=== PATIENT | male | born 1960 | race Caucasian/White ===

== ENCOUNTER 2018-05-28 22:04 | Inpatient (IN) | payer OTHER ==
[~2018-05-28] VITALS: Ht 172.7 cm; Wt 69.6 kg
--- NOTE | 2018-05-28 22:15 | NUR ---
PT EPIA, REPORT TAKEN FROM EMS. PT C/O COUGH X 2 MONTHS WITH SOB, N/V/D STARTING YESTERDAY. PT DENIES RECENT TRAVEL. PT DENIES PAIN. ALBUTEROL RESP TX GIVEN X3 BY EMS PROJECT MANAGEMENT ANALYST. SPO2 ALL MONITORS IN PLACE. EKG TAKEN BY THIS RN ON ARRIVAL, REVIEWED BY LENI PEREYRA. LENI PERERYA AT BEDSIDE TO ASSESS PT, AWAITING ORDERS AT THIS TIME.
[2018-05-28] MEDS ORDERED: ONDANSETRON 2MG/ML, 2ML ONE (22:26)
[2018-05-28] MEDS ORDERED: methylPREDNISolone SOD SUCC 125 MG/2 ML IVP ONE (22:30)
--- NOTE | 2018-05-28 22:33 | NUR ---
PT NAUSEATED, EDMD HAFSA NOTIFIED. VERBAL ORDER RECEIVED FOR ZOFRAN 4MG IV PUSH X 1. EDMD NOTIFIED PT MEETS TB SCREEN CRITERIA OF COUGH >1 MONTH AND LOSS OF APPETITE.
[2018-05-28] MEDS ORDERED: methylPREDNISolone SOD SUCC 125 MG/2 ML ONE (22:39)
[2018-05-28] MEDS ORDERED: ALBUTEROL/IPRATROPIUM 2.5MG/0.5MG, 3 ML ONE (22:47)
--- NOTE | 2018-05-28 22:47 | NUR ---
pt medicated per emar. pt tolerated well. pt aox4. resps even and unlabored. call light within reach. all monitors in place.
--- NOTE | 2018-05-28 22:50 | NUR ---
rt at bedside for medication.
[2018-05-28 22:53] LABS: BASOPHILS % (AUTO) 0 % (0-1); EOSINOPHILS % (AUTO) 0 % (1-7); LYMPHOCYTES # (AUTO) 0.53 x10^3/uL (1-3.4); LYMPHOCYTES % (AUTO) 6 % (22-44); MD NO; MEAN CORPUSCULAR HEMOGLOBIN 31.4 pg (27.5-34.5); MEAN CORPUSCULAR HGB CONC 34.5 g/dL (33.2-36.2); MEAN CORPUSCULAR VOLUME 90.8 fL (81-97); MEAN PLATELET VOLUME 8.5 fL (7.4-10.4); MONOCYTES # (AUTO) 0.71 x10^3/uL (0.2-0.8); MONOCYTES % (AUTO) 8 % (2-9); NEUTROPHILS # (AUTO) 7.62 x10^3/uL (1.8-6.8); NEUTROPHILS % (AUTO) 86 % (42-75); PLATELET COUNT 180 x10^3/uL (130-400); RED BLOOD COUNT 4.59 x10^6/uL (4.38-5.82); RED CELL DISTRIBUTION WIDTH 14.3 % (9.4-14.8)
[2018-05-28 23:00] LABS: RAPID INFLUENZA A POSITIVE (Negative); RAPID INFLUENZA B Negative (Negative)
[2018-05-28] MEDS ORDERED: ONDANSETRON 2MG/ML, 2ML IVPush ONE (23:00)
[2018-05-28 23:05] LABS: ALANINE AMINOTRANSFERASE 54 U/L (12-78); ALBUMIN 3.7 g/dL (3.4-5.0); ANION GAP 9 mmol/L (5-15); CALCIUM 8.2 mg/dL (8.5-10.1); CHLORIDE 105 mmol/L (98-107); CREATININE 0.92 mg/dL (0.7-1.3)
[2018-05-28 23:09] LABS: ALKALINE PHOSPHATASE 72 U/L (45-117); BILIRUBIN,TOTAL 0.3 mg/dL (0.2-1.0); TROPONIN I < 0.015 ng/mL (0.000-0.045)
[2018-05-28] MEDS ORDERED: ALBUTEROL SULFATE 2.5 MG/3 ML NPPB ONE (23:30)
[2018-05-28] MEDS ORDERED: ACETAMINOPHEN 500 MG TABLET PO ONE (23:30)
--- NOTE | 2018-05-28 23:30 | NUR ---
rt paged to provide breathing tx per MD order
--- NOTE | 2018-05-28 23:46 | NUR ---
RT PAGED SECOND TIME TO PROVIDE BREATHING TX.
[2018-05-28] MEDS ORDERED: ALBUTEROL SULFATE 2.5 MG/3 ML ONE (23:47)
[2018-05-28] MEDS ORDERED: ACETAMINOPHEN 500 MG TABLET ONE (23:55)
--- NOTE | 2018-05-29 | NUR ---
RT tx complete. Pt's spo2 86% on room air after breathing tx. EDMD Janny notified. oxygen replaced at 3L/min via NC. sinus tach rate 110-120 on monitor with no ectopy noted. pt a&o, resps even and unlabored. pt medicated per emar, tolerated well. MD at bedside to update pt with POC, pt to be admitted.
--- NOTE | 2018-05-29 00:05 | NUR ---
DROPLET PRECAUTIONS IN PLACE DUE TO POSITIVE FLU RESULT. CALL LIGHT IN REACH.
[2018-05-29] MEDS: NS + 20MEQ KCL 1,000 ML IV SCH ×3 (00:15→17:00)
--- NOTE | 2018-05-29 00:19 | NUR ---
REPORT GIVEN TO DANNIE CUMMINGS.
[2018-05-29] MEDS ORDERED: NS + 20MEQ KCL 1,000 ML IV ONE (00:29)
[2018-05-29] MEDS ORDERED: POTASSIUM CHLORIDE 20 MEQ TAB.ER.PRT ONE (00:29)
[2018-05-29] MEDS ORDERED: ENOXAPARIN 40 MG/0.4 ML ONE (00:29)
[2018-05-29] MEDS ORDERED: POTASSIUM CHLORIDE 20 MEQ TAB.ER.PRT PO ONE (00:30)
[2018-05-29] MEDS: ENOXAPARIN 40 MG/0.4 ML SQ SCH (00:30)
[2018-05-29] MEDS ORDERED: ONDANSETRON 2MG/ML, 2ML IVPush PRN (00:30)
[2018-05-29] MEDS ORDERED: ONDANSETRON ODT 4 MG PO PRN (00:30)
[2018-05-29] MEDS ORDERED: OSELTAMIVIR 75 MG CAPSULE PO ONE (00:30)
--- NOTE | 2018-05-29 00:37 | NUR ---
ASSUMED CARE FOR THIS PT. IVF STARTED AND PT MEDICATED ORDERED. FRIEND AT BEDSIDE PT WITH VSS.
--- NOTE | 2018-05-29 01:29 | NUR ---
REPORT CALLED TO FLOOR PT READY TO GO.
[2018-05-29 02:00] VITALS: BP 113/72
[2018-05-29 02:30] VITALS: BP 113/72
[2018-05-29] MEDS: BENZONATATE 100 MG CAPSULE PO SCH ×4 (02:57→21:01)
[2018-05-29 05:44] LABS: BASOPHILS # (AUTO) 0.01 x10^3/uL (0-0.1); BASOPHILS % (AUTO) 0 % (0-1); EOSINOPHILS # (AUTO) 0.14 x10^3/uL (0-0.4); EOSINOPHILS % (AUTO) 2 % (1-7); LYMPHOCYTES # (AUTO) 0.32 x10^3/uL (1-3.4); LYMPHOCYTES % (AUTO) 4 % (22-44); MD NO; MEAN CORPUSCULAR HEMOGLOBIN 31.1 pg (27.5-34.5); MEAN CORPUSCULAR HGB CONC 34.1 g/dL (33.2-36.2); MEAN CORPUSCULAR VOLUME 91.4 fL (81-97); MEAN PLATELET VOLUME 8.5 fL (7.4-10.4); MONOCYTES # (AUTO) 0.32 x10^3/uL (0.2-0.8); MONOCYTES % (AUTO) 4 % (2-9); NEUTROPHILS # (AUTO) 7.95 x10^3/uL (1.8-6.8); NEUTROPHILS % (AUTO) 91 % (42-75); PLATELET COUNT 193 x10^3/uL (130-400); RED BLOOD COUNT 4.56 x10^6/uL (4.38-5.82); RED CELL DISTRIBUTION WIDTH 14.8 % (9.4-14.8)
[2018-05-29 06:01] LABS: CALCIUM 8.1 mg/dL (8.5-10.1)
[2018-05-29 06:24] LABS: CHLORIDE 107 mmol/L (98-107)
[2018-05-29 07:00] LABS: ANION GAP 9 mmol/L (5-15)
[2018-05-29 08:08] VITALS: BP 115/73
[2018-05-29] MEDS: ALBUTEROL SULFATE 2.5 MG/3 ML NPPB SCH ×5 (08:15→20:30)
[2018-05-29] MEDS: HYDROcodone/CHLORPHENIR ORAL SUSP PO PRN ×2 (09:05→21:03)
[2018-05-29] MEDS: OSELTAMIVIR 75 MG CAPSULE PO SCH ×2 (09:05→21:01)
[2018-05-29] MEDS: ACETAMINOPHEN 500 MG TABLET PO PRN ×2 (09:05→16:33)
[2018-05-29 13:06] VITALS: BP 111/67
[2018-05-29] MEDS ORDERED: GUAIFENESIN/DM 200-20MG, 10ML UDC PO PRN (17:00)
[2018-05-29 20:48] VITALS: BP 123/71
[2018-05-30] MEDS: NS + 20MEQ KCL 1,000 ML IV SCH ×2 (01:22→08:25)
[2018-05-30] MEDS: ENOXAPARIN 40 MG/0.4 ML SQ SCH (01:25)
[2018-05-30 01:27] VITALS: BP 126/85
[2018-05-30 06:54] VITALS: BP 144/80
[2018-05-30] MEDS: ALBUTEROL SULFATE 2.5 MG/3 ML NPPB SCH ×4 (07:00→20:30)
[2018-05-30] MEDS: BENZONATATE 100 MG CAPSULE PO SCH ×3 (08:24→21:28)
[2018-05-30] MEDS: OSELTAMIVIR 75 MG CAPSULE PO SCH ×2 (08:24→21:27)
[2018-05-30] MEDS: methylPREDNISolone SOD SUCC 40 MG/ML IV SCH (09:00)
[2018-05-30] MEDS: ACETAMINOPHEN 500 MG TABLET PO PRN (09:29)
[2018-05-30 12:54] VITALS: BP 122/78
[2018-05-30 20:00] VITALS: BP 125/75
[2018-05-30] MEDS: HYDROcodone/CHLORPHENIR ORAL SUSP PO PRN (21:29)
[2018-05-31] MEDS ORDERED: NS + 20MEQ KCL 1,000 ML IV SCH (00:15)
[2018-05-31] MEDS: ENOXAPARIN 40 MG/0.4 ML SQ SCH (00:48)
[2018-05-31 00:49] VITALS: BP 121/78
[2018-05-31 06:59] VITALS: BP 123/72
[2018-05-31] MEDS: ALBUTEROL SULFATE 2.5 MG/3 ML NPPB SCH ×2 (07:00→11:00)
[2018-05-31] MEDS: methylPREDNISolone SOD SUCC 40 MG/ML IV SCH (08:33)
[2018-05-31] MEDS: BENZONATATE 100 MG CAPSULE PO SCH (08:34)
[2018-05-31] MEDS: OSELTAMIVIR 75 MG CAPSULE PO SCH (08:34)
[2018-05-31] MEDS ORDERED: BENZ-17 PO (11:00)
[2018-05-31] MEDS ORDERED: OSEL75CA PO (11:00)
[2018-05-31] MEDS ORDERED: PRED20TA PO (11:00)
== END 2018-05-31 12:30 | disposition home or self-care (01) | DRG 193 ==
LOC: ED 23:59 → SUATTDRO 05-29 00:14 → EDIP 05-29 00:15 → 4EST 05-29 01:42
PROVIDERS: ADMIT Hospitalist; ATTEND Hospitalist
DX: J10.1 Influenza due to other identified influenza virus with other respiratory manifestations (principal); J96.01 Acute respiratory failure with hypoxia; Z87.891 Personal history of nicotine dependence
CPT/HCPCS: 36415; 84145; 87400; 99291; J7613; 71045; 80048; 80053; 83605; 83735; 84484; 85025; 87040; 93005; 94640; 96372; 96374; 96375; G0378; J1650; J2405; J3480; J2920; J2930

== ENCOUNTER 2018-06-29 13:46 | Outpatient (CLI) | payer OTHER ==
[~2018-06-29 13:46] MED LIST: BENZ-17 PO; OSEL75CA PO; PRED20TA PO
[2018-06-29] MEDS ORDERED: None at this Time (16:18)
== END 2018-06-29 23:59 | disposition home or self-care (01) ==
LOC: STAR 13:46
PROVIDERS: ATTEND Surgery
DX: Z02.9 Encounter for administrative examinations, unspecified (principal)

== ENCOUNTER 2018-07-06 13:23 | Day surgery (SDC) | payer OTHER ==
[~2018-07-06] VITALS: Ht 170.2 cm; Wt 70.1 kg
[~2018-07-06 13:23] MED LIST changes: +None at this Time
[2018-07-06] MEDS ORDERED: LACTATED RINGERS 1,000 ML IV SCH (13:52)
[2018-07-06] MEDS ORDERED: MIDAZOLAM 1 MG/ML, 2ML ONE (13:58)
[2018-07-06] MEDS ORDERED: FENTANYL PF 250 MCG/5ML ONE (13:58)
[2018-07-06] MEDS ORDERED: ACETAMINOPHEN 500 MG TABLET PO ONE (14:00)
[2018-07-06] MEDS ORDERED: GABAPENTIN 300 MG CAPSULE PO ONE (14:00)
[2018-07-06 14:07] VITALS: BP 138/78
[2018-07-06] MEDS ORDERED: ROCURONIUM 10MG/ML,5ML ONE (14:17)
[2018-07-06] MEDS ORDERED: CEFAZOLIN 1,000 MG ONE (14:17)
[2018-07-06] MEDS ORDERED: PROPOFOL 10 MG/ML, 20ML ONE (14:17)
[2018-07-06] MEDS ORDERED: GLYCOPYRROLATE 0.2MG/1ML, 5ML ONE (14:17)
[2018-07-06] MEDS ORDERED: NEOSTIGMINE 1 MG/ML, 10ML ONE (14:17)
[2018-07-06] MEDS ORDERED: BUPIVACAINE/PF-EPI 0.5% 1:200K ONE (15:14)
[2018-07-06] MEDS ORDERED: FENTANYL PF 100 MCG/2ML IV PRN (16:00)
[2018-07-06] MEDS ORDERED: LABETALOL 5MG/ML, 20ML IV PRN (16:00)
[2018-07-06] MEDS ORDERED: ONDANSETRON ODT 8 MG PO PRN (16:00)
[2018-07-06] MEDS ORDERED: PROMETHAZINE 25 MG/ML, 1ML IM PRN ×2 (16:00)
[2018-07-06] MEDS ORDERED: HYDROmorphone 2 MG/ML, 1ML IVPush PRN (16:00)
[2018-07-06] MEDS ORDERED: ONDANSETRON 2MG/ML, 2ML IV PRN (16:00)
[2018-07-06] MEDS ORDERED: PROMETHAZINE 25 MG SUPP PR PRN (16:00)
[2018-07-06] MEDS ORDERED: PROMETHAZINE 12.5 MG SUPP PR PRN (16:00)
[2018-07-06] MEDS ORDERED: hydrALAzine 20 MG/ML, 1ML IV PRN (16:00)
[2018-07-06] MEDS ORDERED: OXYcodone 5 MG/5 ML ORAL.SOL UDC PO PRN (16:00)
[2018-07-06] MEDS ORDERED: MEPERIDINE/PF 25MG/0.5ML IVPush PRN (16:00)
[2018-07-06] MEDS ORDERED: MORPHINE SULFATE 4 MG/ML, 1ML IVPush PRN (16:00)
[2018-07-06] MEDS ORDERED: PROMETHAZINE 25 MG/ML, 1ML IV PRN (16:00)
[2018-07-06] MEDS ORDERED: OXYcodone 5 MG/5 ML ORAL.SOL UDC ONE (17:33)
[2018-07-06] MEDS ORDERED: HYDROmorphone 1 MG/ML, 1ML ONE (17:33)
[2018-07-06] MEDS ORDERED: FENTANYL PF 100 MCG/2ML ONE (17:33)
[2018-07-06] MEDS: OXYcodone/APAP 5/325MG TABLET PO PRN ×2 (20:24→20:35)
== END 2018-07-06 20:50 | disposition home or self-care (01) ==
LOC: OR 13:23 → 4NOR 18:46 → OR 20:50
PROVIDERS: ATTEND Surgery
DX: K40.30 Unilateral inguinal hernia, with obstruction, without gangrene, not specified as recurrent (principal); Z87.891 Personal history of nicotine dependence
CPT/HCPCS: 49650; C1781; J0690; J2250; J2704; J2710; J3010; J3490; J7120; S2900; G0378